=== PATIENT | male | born 2000 | race Two or more races ===

== ENCOUNTER 2021-02-20 12:42 | Emergency (ER) | payer OTHER ==
[~2021-02-20] VITALS: Ht 170.2 cm; Wt 83.9 kg
[2021-02-20 14:51] VITALS: BP 111/55
== END 2021-02-20 16:24 | disposition home or self-care (01) ==
LOC: ER 12:42
DX: J06.9 Acute upper respiratory infection, unspecified (principal); I11.0 Hypertensive heart disease with heart failure; I50.9 Heart failure, unspecified; Z95.1 Presence of aortocoronary bypass graft; Z20.822 Contact with and (suspected) exposure to COVID-19
CPT/HCPCS: 36415; 87426